=== PATIENT | female | born 1945 | race Two or more races ===

== ENCOUNTER 2019-03-19 10:57 | Emergency (ER) | payer OTHER ==
[~2019-03-19] VITALS: Ht 154.9 cm; Wt 59.0 kg
--- NOTE | 2019-03-19 10:57 | NUR ---
"BIB [facility] FROM HOME,C/O RIGHT LEG PAIN AND WEAKNESS" PT VERBALLY RESPONSIVE, -SOB, NAD NOTED, VSS, PENDING MD ARCEO
[2019-03-19 11:46] LABS: BASOPHILS # (AUTO) 0.1 /CMM (0.0-0.2); BASOPHILS % (AUTO) 0.8 % (0.0-2.0); EOSINOPHILS % (AUTO) 0.2 % (0.0-6.0); HEMATOCRIT 43 % (33-45); HEMOGLOBIN 14.2 g/dL (11.5-14.8); LYMPHOCYTES # (AUTO) 0.3 /CMM (0.8-4.8); LYMPHOCYTES % (AUTO) 4.8 % (20.0-44.0); MEAN CORPUSCULAR HGB CONC 33 g/dl (31.0-36.0); MEAN CORPUSCULAR VOLUME 92 fL (82-100); MONOCYTES # (AUTO) 0.3 /CMM (0.1-1.30); NEUTROPHILS # (AUTO) 6.5 /CMM (1.8-8.9); NEUTROPHILS % (AUTO) 90.2 % (43.0-81.0); PLATELET COUNT (AUTO) 256 /CMM (150-450); RED BLOOD CELL COUNT(AUTO) 4.63 MIL/uL (4.0-5.2); WHITE BLOOD COUNT (AUTO) 7.2 K/uL (4.3-11.0)
--- NOTE | 2019-03-19 12:04 | NUR ---
URINE COLLECTED AND SENT TO LAB
[2019-03-19 12:16] LABS: APPEARANCE,URINE Clear (CLEAR); BILIRUBIN,URINE Negative (NEGATIVE); BLOOD, URINE Negative Ery/uL (NEGATIVE); COLOR,URINE Yellow (YELLOW); KETONES,URINE Negative (NEGATIVE); LEUKOCYTE ESTERASE ,URINE Negative (NEGATIVE); NITRITE, URINE Negative (NEGATIVE); PH,URINE 5.5 (5.0-8.0); PROTEIN,URINE Trace mg/dl (NEGATIVE); UGLUCOSE Negative (NEGATIVE); UROBILINOGEN,URINE 0.2 EU/dL (0.2)
[2019-03-19 12:30] LABS: BACTERIA,URINE Few /HPF (None Seen); RBC,URINE 0-2 /HPF (0-2); SQUAMOUS EPITHELIAL CELL,UR Few /HPF (None Seen); WBC,URINE 0-2 /HPF (0-3)
[2019-03-19 12:34] LABS: CARBON DIOXIDE 27 mmol/L (21-32); CHLORIDE 112 mmol/L (98-107); CREATININE 1.5 mg/dL (0.6-1.3); GLUCOSE 114 mg/dL (74-106); POTASSIUM 4.1 mmol/L (3.5-5.1); SODIUM SERUM 149 mmol/L (136-145); UREA NITROGEN, BLOOD 14 mg/dL (7-18)
[2019-03-19 12:39] LABS: ALANINE AMINOTRANSFERASE 20 U/L (12-78); ALBUMIN 3.8 g/dL (3.4-5.0); ALKALINE PHOSPHATASE 150 U/L (46-116); ASPARTATE AMINOTRANSFERASE 24 U/L (15-37); BILIRUBIN,DIRECT 0.1 mg/dL (0.0-0.2); BILIRUBIN,TOTAL 0.3 mg/dL (0.2-1.0); CALCIUM, SERUM 11.1 mg/dL (8.5-10.1); TOTAL PROTEIN, SERUM 7.6 g/dL (6.4-8.2)
--- NOTE | 2019-03-19 13:29 | NUR ---
CALLED [facility] FOR AMBULANCE TRANSPORT. WAITING FOR ETA OF AMBULANCE
[2019-03-19] MEDS ORDERED: IV NS 0.9% 1,000 ML BAG IV ONE (13:30)
--- NOTE | 2019-03-19 14:20 | NUR ---
DENNY PORTILLOP CALLED PT HAS PMD F/U ON 04/22/19 NIESHA 10A AT [facility]
--- NOTE | 2019-03-19 14:41 | NUR ---
ETA 1530, [facility]
[2019-03-19] MEDS ORDERED: LOSARTAN POTASSIUM 25 MG TABLET ONE (15:21)
[2019-03-19 15:28] VITALS: BP 196/138
[2019-03-19] MEDS ORDERED: LOSARTAN POTASSIUM 25 MG TABLET PO ONE (15:30)
--- NOTE | 2019-03-19 15:54 | NUR ---
PT DISCHARGE HOME WITH SON, PT LEFT VIA [facility]ANCE [facility], VSS, NAD NOTED, -SOB, PT LEFT IN STABLE CONDITION
== END 2019-03-19 15:53 | disposition home or self-care (01) ==
LOC: ER 11:00
DX: R53.1 Weakness (principal); I10 Essential (primary) hypertension; M25.551 Pain in right hip
CPT/HCPCS: 36415; 71045; 73502; 80048; 80076; 81001; 84484; 85025; 93005; 99284; J7030; 81000-TC

== ENCOUNTER 2020-03-27 10:39 | Emergency (ER) | payer OTHER ==
[~2020-03-27] VITALS: Ht 165.1 cm; Wt 62.1 kg
--- NOTE | 2020-03-27 10:45 | NUR ---
[id number], from home, c/o dizziness, not eating and drinking x 12 hrs per son. Patient a/ox3, breathing even and unlabored, appears weak, no resp distress noted, vitals stable.
--- NOTE | 2020-03-27 10:59 | NUR ---
IV access initiated and blood drawned and sent to lab
[2020-03-27] MEDS ORDERED: IV NS 0.9% 500 ML BAG IV ONE (11:00)
[2020-03-27 11:01] LABS: BASOPHILS % (AUTO) 0.7 % (0.0-2.0); EOSINOPHILS % (AUTO) 0.5 % (0.0-6.0); HEMATOCRIT 47 % (33-45); HEMOGLOBIN 15.4 g/dL (11.5-14.8); LYMPHOCYTES # (AUTO) 1.2 /CMM (0.8-4.8); LYMPHOCYTES % (AUTO) 18.3 % (20.0-44.0); MEAN CORPUSCULAR HGB CONC 33 g/dl (31.0-36.0); MEAN CORPUSCULAR VOLUME 93 fL (82-100); MONOCYTES # (AUTO) 0.4 /CMM (0.1-1.30); MONOCYTES % (AUTO) 6.6 % (2.0-12.0); NEUTROPHILS # (AUTO) 4.7 /CMM (1.8-8.9); NEUTROPHILS % (AUTO) 73.9 % (43.0-81.0); PLATELET COUNT (AUTO) 194 /CMM (150-450); RED BLOOD CELL COUNT(AUTO) 5.09 MIL/uL (4.0-5.2); WHITE BLOOD COUNT (AUTO) 6.3 K/uL (4.3-11.0)
[2020-03-27 11:08] LABS: CALCIUM, SERUM 11.7 mg/dL (8.5-10.1); CARBON DIOXIDE 21 mmol/L (21-32); CHLORIDE 111 mmol/L (98-107); CREATININE 1.7 mg/dL (0.6-1.3); GLUCOSE 96 mg/dL (74-106); POTASSIUM 4.5 mmol/L (3.5-5.1); SODIUM SERUM 145 mmol/L (136-145); UREA NITROGEN, BLOOD 30 mg/dL (7-18)
[2020-03-27] MEDS ORDERED: DILTIAZEM HCL 25 MG IV ONE (11:09)
[2020-03-27 11:14] LABS: ALANINE AMINOTRANSFERASE 21 U/L (12-78); ALBUMIN 4.2 g/dL (3.4-5.0); ALCOHOL, BLOOD 13 mg/dL (0-0); ALKALINE PHOSPHATASE 129 U/L (46-116); ASPARTATE AMINOTRANSFERASE 36 U/L (15-37); BILIRUBIN,DIRECT 0.1 mg/dL (0.0-0.2); BILIRUBIN,TOTAL 0.7 mg/dL (0.2-1.0); TOTAL PROTEIN, SERUM 7.9 g/dL (6.4-8.2)
[2020-03-27] MEDS ORDERED: DILTIAZEM HCL 50 MG IV IV ONE ×2 (11:30→12:00)
--- NOTE | 2020-03-27 11:55 | NUR ---
[facility] CALLED SPOKE WITH ANGELES FREED,WAITING ON DENISHA NORRIS TO CALL BACK
[2020-03-27] MEDS ORDERED: IV NS 0.9% 1,000 ML IV ONE (12:00)
--- NOTE | 2020-03-27 12:19 | NUR ---
CALL BACK FROM LEXII DENNY MD TO DR ROWLEY
--- NOTE | 2020-03-27 12:45 | NUR ---
[place] CALLED INFO FOLLOWS: GOING TO [facility] [phone] ACCEPTING [facility] AT [address] 120/72 PR64 97% RR18
[2020-03-27 12:57] VITALS: BP 122/79
--- NOTE | 2020-03-27 13:12 | NUR ---
CALLED DENISHA [facility] [phone] GAVE CORRECT HR OF 102 TO RADHA
--- NOTE | 2020-03-27 13:16 | NUR ---
called to give report x 2 but placed on hold. will call back again
--- NOTE | 2020-03-27 13:24 | NUR ---
REPORT GIVEN TO LAURA LUBIN NURSE AT THE [facility].
--- NOTE | 2020-03-27 13:29 | NUR ---
[facility] AT PT BEDSIDE FOR TRANSPORT TO [facility]. REPORT GIVEN TO YUDITH, AMBULANCE STAFF.
== END 2020-03-27 14:13 | disposition short-term general hospital (02) ==
LOC: ER 10:39
DX: I48.91 Unspecified atrial fibrillation (principal); E83.52 Hypercalcemia; E86.0 Dehydration; R55 Syncope and collapse; I10 Essential (primary) hypertension; E11.9 Type 2 diabetes mellitus without complications
CPT/HCPCS: 36415; 70450; 71045; 80048; 80076; 80307; 84484; 85025; 93005; 96361; 96374; 96376; 99291; J3490; J7030; J7040 ×2; G0480